=== PATIENT | female | born 1980 | race Caucasian/White ===

== ENCOUNTER → 2022-10-17 18:24 | Outpatient (BNVA) | payer SELFPAY | PROVIDERS: Visit Provider Family Medicine Adult Medicine | DX: S69.90XA Unspecified injury of unspecified wrist, hand and finger(s), initial encounter (principal); X58.XXXA Exposure to other specified factors, initial encounter | CPT/HCPCS: 73110 ==

== ENCOUNTER → 2023-03-17 10:00 | Outpatient (BNVA) | payer BC, SELFPAY | PROVIDERS: PCP Family Medicine; Referring Provider Family Medicine; Visit Provider Obstetrics & Gynecology | DX: N92.6 Irregular menstruation, unspecified (principal) | CPT/HCPCS: 83001; 84146; 84443; 84702; 85025 ==

== ENCOUNTER → 2023-04-02 10:16 | Outpatient (BNVA) | payer OTHER, SELFPAY | PROVIDERS: PCP Family Medicine; Visit Provider Obstetrics & Gynecology | DX: N92.6 Irregular menstruation, unspecified (principal) | CPT/HCPCS: 76830 ==

== ENCOUNTER 2023-10-20 20:59 | Emergency (ER) | payer OTHER, SELFPAY ==
[2023-10-20 21:07] VITALS: BP 122/77; PULSE 70; RESP 20; TEMP 36.7; O2SAT 96; BMI 36.6
--- NOTE | 2023-10-20 21:36 | W.ED.ABDPA2 ---
HPI - Abdominal Pain General: Chief Complaint: Abdominal Pain Stated Complaint: abd pain vomiting Time Seen by Provider: 10/20/23 21:28 History of Present Illness: Patient presents to the ER with complaints of sudden onset severe epigastric right upper quadrant abdominal pain and nausea and vomiting since 1 hour. 1 hour ago she ate cheddar peppers for dinner and is been experiencing this ever since. Patient does have a history of having her gallbladder removed, she has had 6 C-sections, patient tried Pepto-Bismol and antacids with no relief. Patient did go to her primary care doctor today for getting up in the middle the night to make times to go urinate he did prescribe her Diflucan which she has taken in the past and has never caused this reaction. Related Data: Date of Last Menstrual Period: 09/13/23 Review of Systems General: Reports: 10 or more systems reviewed and unremarkable except in HPI and below PFSH ED PFSH: Medical History Anxiety Bipolar 2 disorder Depression Gestational diabetes OCD (obsessive compulsive disorder) Strain of forearm, left Traumatic ecchymosis of left hand Surgical History History of 6 C-sections History of cholecystectomy Family History Mother Cancer lung Other Lung disease Psychiatric illness Denies family history of Diabetes CAD (coronary artery disease) Clotting disorder Dementia Hyperlipidemia Chronic kidney disease (CKD) Anesthesia complication Bleeding disorder Hypertension Stroke Social History Quit status (tobacco/nicotine): has quit using Alcohol intake: current Alcohol intake frequency: holidays/special occasions only Substance/Drug Use: never Lives independently: Yes Marital status: Number of children: 6 service: No Current occupational status: employed 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 Current gender identity: Female Yuki/Congregation: [employer] Special yuki needs: No Agree to transfusion: Yes Female Reproductive History: Date of last menstrual period: 09/13/23 Physical Exam Const: COMMON NORMALS: no acute distress, average body habitus, patient oriented x3, no limitations, healthy appearing, alert and well nourished HENMT: COMMON NORMALS: normocephalic, atraumatic, hearing grossly normal bilaterally, external ears normal, Normal external nose present, moist oral mucous membranes and oropharynx normal HEAD & SCALP: normocephalic and atraumatic NOSE: Normal external nose present EXTERNAL EAR: Yes external ears normal Neck/C-Spine: COMMON NORMALS: full ROM, no lymphadenopathy, supple, no meningeal signs, no JVD and Thyroid normal THYROID: Thyroid normal Chest: COMMONS NORMALS: normal inspection of the chest and normal palpation of entire chest wall Resp: COMMON NORMALS: normal respiratory effort, No retractions, No use of accessory muscles and clear to auscultation bilaterally AUSCULTATION: clear to auscultation bilaterally Cardio: COMMON NORMALS: no JVD, regular rate, regular rhythm, S1 normal heart sound present, S2 normal heart sound present, No gallops present (Cardio), No clicks present (Cardio), No murmurs present (Cardio) and No rub (Cardio) RATE: regular rate RHYTHM: regular rhythm HEART SOUNDS: S1 normal heart sound present and S2 normal heart sound present GI: COMMON NORMALS: Normal to inspection, nondistended, normoactive bowel sounds present, Soft to palpation, No hepatosplenomegaly present and no masses; negative for non-tender (Tender to palpate epigastric region and right upper quadrant.) PALPATION: Yes Soft to palpation and Yes No hepatosplenomegaly present Neuro: COMMON NORMALS: patient oriented x3 SENSORIUM/ORIENTATION: Yes alert MENINGEAL SIGNS: Yes no meningeal signs Course Vital Signs: Vital signs: Vital Signs Temperature 98.1 F 10/20/23 21:07 Pulse Rate 61 10/21/23 00:10 Respiratory Rate 18 10/21/23 00:10 Blood Pressure 138/78 10/21/23 00:10 Pulse Oximetry 97 10/21/23 00:10 Oxygen Delivery Me thod Room Air 10/21/23 00:10 MDM - Abdominal Pain Medical Decision Making Patient presents to the ER with nausea vomiting patient was worked up with lab work and a CT abdomen and pelvis CT scan with contrast, patient's white count was slightly elevated 17,000 patient's abdomen and CT was Unremarkable except for some mild periportal edema, 9 mm lineal density and a common bile duct could represent a surgical clip. Patient was feeling much better after the Toradol Zofran and fluid. Patient be discharged home to follow-up with her PCP in 7 days on an as-needed basis. Differential Diagnosis Likely abdominal pain and gastroenteritis; Unlikely acute appendicitis, calculus of kidney, constipation, diverticulitis, endometriosis, pancreatitis or small bowel obstruction Medical Records I reviewed the patient's medical records. Lab Data I reviewed the patient's lab results. 10/20/23 21:26 10/20/23 21: Labs/Radiology: Radiology Impressions Abdomen/Pelvis CT 10/20/23 22:02 IMPRESSION: 1. Patient is status post cholecystectomy. There is both mild intrahepatic bile duct dilation, not unexpected in the setting of cholecystectomy, and mild periportal edema, which is nonspecific, most commonly be seen with aggressive fluid resuscitation/over-hydration, but can also be seen with hepatitis. 2. There is a 9 mm linear metallic density within the distal common bile duct, indeterminate, could represent a migrated surgical clip. 3. Small somewhat ill-defined hypodensities in the anterior right hepatic lobe, incompletely characterized. Consider further evaluation with nonemergent multiphase CT or MRI when acute illness resolves. Laboratory Results WBC 17.07 10^3/uL (3.29-11.43) H 10/20/23 21: RBC 4.81 10^6/uL (3.85-5.65) 10/20/23: Hgb 14.00 g/dL (11.27-16.99) 10/20/23: Hct 43.8 % (36-47) 10/20/23: MCV 91.1 fl (85-98) 10/20/23: MCH 29.1 pg (27-33) 10/20/23: MCHC 32.0 g/dL (30-55) 10/20/23 21: RDW 12.7 % (12.1-15.1) 10/20/23: Plt Count 235 10^3/cmm (157-399) 10/20/23: MPV 9.5 fL (7.4-10.4) 10/20/23: Neut % (Auto) 81.6 % 10/20/23 21: Lymph % (Auto) 10.4 % 10/20/23: [place] % (Auto) 6.0 % 10/20/23: Eos % (Auto) 1.0 % 10/20/23 21: Baso % (Auto) 0.5 % 10/20/23 21: Neut # (Auto) 13.92 10^3/uL (1.8-7.7) H 10/20/23: Lymph # (Auto) 1.8 10^3/uL (0.8-4.8) 10/20/23 21: [place] # (Auto) 1.0 10^3/uL (0.2-0.9) H 10/20/23 21: Eos # (Auto) 0.2 10^3/uL (0.0-0.8) 10/20/23: Baso # (Auto) 0.1 10^3/uL (0.0-0.1) 10/20/23: Nucleated RBC % (auto) 0 % 10/20/23: Nucleated RBCs # 0.0 /100WBC 10/20/23 21: Sodium 140 mmol/L (136-145) 10/20/23 21: Potassium 3.9 mmol/L (3.5-5.1) 10/20/23: Chloride 105 mmol/L (98-107) 10/20/23: Carbon Dioxide 24 mmol/L (22-29) 10/20/23: Anion Gap 14.9 (5-19) 10/20/23 21: BUN 13 mg/dL (6-20) 10/20/23 21: Creatinine 1.0 mg/dL (0.5-0.9) H 10/20/23 21: GFR Calculation 60.2 mL/min (90-130) L 10/20/23 21: Glucose 134 mg/dL (65-115) H 10/20/23 21: Calculated Osmolality 292 mOsm/kg (285-295) 10/20/23: Calcium 10.0 mg/dL (8.5-10.5) 10/20/23 21: Total Bilirubin 0.8 mg/dL (0.15-1.2) 10/20/23 21: AST 100 U/L (0-32) H 10/20/23 21: ALT 40 U/L (0-33) H 10/20/23 21: Alkaline Phosphatase 82 U/L (35-105) 10/20/23 21: Total Protein 7.1 g/dL (6.6-8.7) 10/20/23: Albumin 4.4 g/dL (3.5-5.2) 10/20/23 21: Globulin 2.7 g/dL (1.3-4.6) 10/20/23 21: Lipase 42 U/L (13-60) 10/20/23 21: HCG, Qual Negative (Negative) 10/20/23 21: Urine Color Yellow (Yellow) 10/20/23 22:32 Urine Appearance Clear (CLEAR) 10/20/23 22:32 Urine pH 5 (5-7) 10/20/23 22:32 Ur Specific [place] 1.010 (1.005-1.030) 10/20/23 22:32 Urine Protein Trace (Negative) 10/20/23 22:32 Urine Glucose (UA) Norm (Normal) 10/20/23 22:32 Urine Ketones Negative (Negative) 10/20/23 22:32 Urine Blood 3+ (Negative) H 10/20/23 22:32 Urine Nitrate Negative (Negative) 10/20/23 22:32 Urine Bilirubin Neg (Negative) 10/20/23 22:32 Urine Urobilinogen 4 mg/dL (Negative) H 10/20/23 22:32 Ur Leukocyte Esterase Negative (Negative) 10/20/23 22:32 Urine RBC 0-4 /hpf (0-2) H 10/20/23 22:32 Urine WBC 5-10 /hpf (0-5) H 10/20/23 22:32 Ur Squamous Epith Cells 40-55 /hpf (0-5) H 10/20/23 22:32 Amorphous Sediment Trace /hpf 10/20/23 22:32 Urine Bacteria Trace /hpf (NONE) 10/20/23 22:32 Urine Mucus Trace /hpf 10/20/23 22:32 All radiology interpretation(s) finalized by discharge Discharge Plan Discharge Patient Disposition: Home Clinical Impression: Gastroenteritis Abdominal pain Qualifiers: Abdominal location: upper abdomen, unspecified Qualified Code(s): R10.10 - Upper abdominal pain, unspecified Condition: Stable Prescriptions: New ondansetron HCl 4 mg tablet 4 mg PO Q8H PRN (Reason: nausea and vomiting) Qty: 10 0RF No Action budesonide 32 mcg/actuation spray,non-aerosol 1 spray intranasal DAILY PRN Rx Instructions: administer into each nostril oxymetazoline [Afrin (oxymetazoline)] 0.05 % spray,non-aerosol 2 spray intranasal Q12H PRN fluconazole 150 mg tablet 150 mg PO Q3D 0 Days Qty: 2 0RF trazodone 100 mg tablet 100 mg PO DAILY Qty: 90 1RF medroxyprogesterone [Depo-Provera] 150 mg/mL suspension 150 mg IM ONCE Qty: 1 4RF Discharge Orders: Discharge ED (Routine); Ordered 10/21/23 Ordered By: Jaleel Holbrook Referrals: Ney Alberto MD [Primary Care Provider] - 1 week Patient Instructions: Gastroenteritis (DC), Abdominal Pain (ED) Activity Restrictions/Additional Instructions: Please follow-up with your family practice physician within the next 7 to 10 days or sooner as needed for further evaluation testing. Please take all your medicine as directed as needed. Coding Level of Care Code ED Hobbing Machine Operator for Dre Jefferson
[2023-10-20 21:40] LABS: Basophils # 0.1 10^3/uL (0.0-0.1); Basophils % 0.5 %; Eosinophils # 0.2 10^3/uL (0.0-0.8); Hematocrit 43.8 % (36-47); Lymphocytes # 1.8 10^3/uL (0.8-4.8); Lymphocytes % 10.4 %; Mean Corpuscular Hemoglobin 29.1 pg (27-33); Mean Corpuscular Volume 91.1 fl (85-98); Mean Platelet Volume 9.5 fL (7.4-10.4); Neutrophils # 13.92 10^3/uL (1.8-7.7); Neutrophils % 81.6 %; Nucleated Red Blood Cells % 0 %; Platelet Count 235 10^3/cmm (157-399); Red Blood Count 4.81 10^6/uL (3.85-5.65); Red Cell Distribution Width 12.7 % (12.1-15.1); White Blood Count 17.07 10^3/uL (3.29-11.43)
[2023-10-20 21:44] LABS: HCG, Serum Qual Negative (Negative)
[2023-10-20 21:49] LABS: Alanine Aminotransferase 40 U/L (0-33); Albumin Level 4.4 g/dL (3.5-5.2); Alkaline Phosphatase 82 U/L (35-105); Anion Gap 14.9 (5-19); Aspartate Amino Transferase 100 U/L (0-32); Blood Urea Nitrogen 13 mg/dL (6-20); Carbon Dioxide 24 mmol/L (22-29); Chloride 105 mmol/L (98-107); Globulin 2.7 g/dL (1.3-4.6); Glomerular Filtration Rate 60.2 mL/min (90-130); Glucose 134 mg/dL (65-115); Lipase 42 U/L (13-60); Osmolality Calculated 292 mOsm/kg (285-295); Potassium 3.9 mmol/L (3.5-5.1); Sodium 140 mmol/L (136-145); Total Bilirubin 0.8 mg/dL (0.15-1.2); Total Protein 7.1 g/dL (6.6-8.7)
[2023-10-20] MEDS: ondansetron 2 mg/ML SDV 2 mL 4 MG IVP (21:49)
[2023-10-20] MEDS: sodium chloride 0.9% 1,000 ML 999 ML IV (21:49)
[2023-10-20] MEDS: ketorolac 30 mg/mL INJ IVP (21:49)
--- NOTE | 2023-10-20 22:02 | CTR_ITS ---
PROCEDURE INFORMATION: Exam: CT Abdomen And Pelvis With Contrast Exam date and time: 10/20/2023 10:15 PM Age: 43 years old Clinical indication: Abdominal pain; Localized; Right upper quadrant (ruq); Prior surgery; Surgery date: 6+ months; Surgery type: Gb, ; Additional info: Ruq/epigastric pain, n/v, HX cholycystectomy, elevated lfts TECHNIQUE: Imaging protocol: Computed tomography of the abdomen and pelvis with contrast. Radiation optimization: All CT scans at this facility use at least one of these dose optimization techniques: automated exposure control; mA and/or kV adjustment per patient size (includes targeted exams where dose is matched to clinical indication); or iterative reconstruction. Contrast material: OMNI 350; Contrast volume: 100 ml; Contrast route: INTRAVENOUS (IV); REPORTING DATA: Count of CT and Cardiac NM exams in prior 12 months: This patient has received 0 known CTs and 0 known cardiac nuclear medicine studies in the 12 months prior to the current study. COMPARISON: US transvaginal [id number] 04/02/2023 10:26 AM RADIATION DOSE METRICS: Total DLP (mGy-cm): 863.12 FINDINGS: Liver: Small somewhat ill-defined hypodensities in the anterior right hepatic lobe, series 3, image 21, and inferior right hepatic lobe, series 3, image 36, incompletely characterized. Gallbladder and bile ducts: There is both mild intrahepatic bile duct dilation, not unexpected in the setting of cholecystectomy, and mild periportal edema, which is nonspecific, but can be seen with aggressive fluid resuscitation/over-hydration. Cholecystectomy. There is a 9 mm linear metallic density within the distal common bile duct, series 5, image 25, indeterminate, could represent a migrated surgical clip. Pancreas: Unremarkable. No duct dilation. Spleen: Unremarkable. Adrenal glands: Unremarkable. Kidneys and ureters: No hydronephrosis or hydroureter. No renal or ureteral calculi. Stomach and bowel: No bowel obstruction. Appendix: No evidence of appendicitis. Intraperitoneal space: Unremarkable. No free air. No significant fluid collection. Vasculature: Portal and hepatic veins are patent. Lymph nodes: No enlarged lymph nodes. Urinary bladder: Unremarkable as visualized. Reproductive: Small hyperdense lesions in the anterior uterine fundus, most likely fibroid. Bones/joints: No acute fracture. No aggressive osseous lesions. Soft tissues: Unremarkable. CT/CT abdomen pelvis w con* [id number] IMPRESSION: 1. Patient is status post cholecystectomy. There is both mild intrahepatic bile duct dilation, not unexpected in the setting of cholecystectomy, and mild periportal edema, which is nonspecific, most commonly be seen with aggressive fluid resuscitation/over-hydration, but can also be seen with hepatitis. 2. There is a 9 mm linear metallic density within the distal common bile duct, indeterminate, could represent a migrated surgical clip. 3. Small somewhat ill-defined hypodensities in the anterior right hepatic lobe, incompletely characterized. Consider further evaluation with nonemergent multiphase CT or MRI when acute illness resolves.
[2023-10-20] MEDS: iohexol 350 mg/mL 500 mL Btl (per mL) IV (22:19)
[2023-10-20 22:45] VITALS: BP 108/57; PULSE 61; RESP 18; O2SAT 97
[2023-10-20 22:55] LABS: Add Urine Culture? No; Add Urine Microscopic? YES; Amorphous Sediment Urine TRACE /hpf; Bacteria Urine TRACE /hpf; Bilirubin Urine Neg (Negative); Blood Urine 3+ (Negative); Glucose Urine UA Norm (Normal); Ketones Urine Negative (Negative); Leukocyte Esterase Urine Negative (Negative); Mucus Urine TRACE /hpf; Nitrate Urine Negative (Negative); Protein Urine Trace (Negative); RBC Urine 0-4 /hpf (0-2); Squamous Epithelial Cell Urine 40-55 /hpf (0-5); Urine Appearance Clear (CLEAR); Urine Color Yellow (Yellow); Urobilinogen Urine 4 mg/dL (Negative); pH Urine 5 (5-7)
[2023-10-21 00:10] VITALS: BP 138/78; PULSE 61; RESP 18; O2SAT 97
[2023-10-21] MEDS: HYDROcodone-acetaminophen 5-325 mg Tablet 1 TAB PO (00:41)
[2023-10-21] MEDS: famotidine 20 mg Tablet 40 MG PO (00:41)
== END 2023-10-21 00:42 | disposition home or self-care (01) ==
PROVIDERS: Nurse Practitioner Family; Emergency Provider Emergency Medicine; PCP Family Medicine
DX: K52.9 Noninfective gastroenteritis and colitis, unspecified (principal); Z87.891 Personal history of nicotine dependence
CPT/HCPCS: 36415; 74177; 80053; 81000; 81001; 83690; 84703; 85025; 96361; 96374; 96375; 99285; J1885; J2405; J7030; Q9967

== ENCOUNTER 2023-10-24 17:08 | Emergency (ER) | payer OTHER, SELFPAY ==
[2023-10-24 17:14] VITALS: BP 137/84; PULSE 60; RESP 18; TEMP 36.6; O2SAT 96; BMI 36.6
[2023-10-24 18:29] LABS: Basophils # 0.1 10^3/uL (0.0-0.1); Basophils % 0.7 %; Eosinophils # 0.4 10^3/uL (0.0-0.8); Eosinophils % 3.5 %; Lymphocytes # 1.4 10^3/uL (0.8-4.8); Lymphocytes % 11.8 %; Mean Corpuscular HGB Conc 31.7 g/dL (30-55); Mean Corpuscular Hemoglobin 29.6 pg (27-33); Mean Corpuscular Volume 93.1 fl (85-98); Mean Platelet Volume 9.7 fL (7.4-10.4); Monocytes # 0.8 10^3/uL (0.2-0.9); Monocytes % 6.7 %; Neutrophils # 9.25 10^3/uL (1.8-7.7); Neutrophils % 76.7 %; Nucleated Red Blood Cells % 0 %; Platelet Count 230 10^3/cmm (157-399); Red Blood Count 4.94 10^6/uL (3.85-5.65); Red Cell Distribution Width 13.3 % (12.1-15.1); White Blood Count 12.05 10^3/uL (3.29-11.43)
[2023-10-24 18:56] LABS: Alanine Aminotransferase 437 U/L (0-33); Albumin Level 4.3 g/dL (3.5-5.2); Alkaline Phosphatase 192 U/L (35-105); Anion Gap 16.7 (5-19); Aspartate Amino Transferase 116 U/L (0-32); Blood Urea Nitrogen 7 mg/dL (6-20); Calcium 9.4 mg/dL (8.5-10.5); Carbon Dioxide 21 mmol/L (22-29); Chloride 107 mmol/L (98-107); Globulin 2.8 g/dL (1.3-4.6); Glucose 135 mg/dL (65-115); Lipase 103 U/L (13-60); Osmolality Calculated 292 mOsm/kg (285-295); Potassium 3.7 mmol/L (3.5-5.1); Sodium 141 mmol/L (136-145); Total Bilirubin 4.5 mg/dL (0.15-1.2); Total Protein 7.1 g/dL (6.6-8.7)
--- NOTE | 2023-10-24 20:10 | CTR_ITS ---
PROCEDURE INFORMATION: Exam: CT Abdomen And Pelvis With Contrast Exam date and time: 10/24/2023 9:14 PM Age: 43 years old Clinical indication: Abdominal pain; Localized; Prior surgery; Surgery date: 6+ months; Surgery type: Gb. Csection; Patient HX: Upper abd pain with elevated lfts and bilirubin. ; Additional info: Abd pain/ elevated bilirubin TECHNIQUE: Imaging protocol: Computed tomography of the abdomen and pelvis with contrast. Sagittal and coronal reformatted images were created and reviewed. Radiation optimization: All CT scans at this facility use at least one of these dose optimization techniques: automated exposure control; mA and/or kV adjustment per patient size (includes targeted exams where dose is matched to clinical indication); or iterative reconstruction. Contrast material: OMNI 350; Contrast volume: 100 ml; Contrast route: INTRAVENOUS (IV); REPORTING DATA: Count of CT and Cardiac NM exams in prior 12 months: This patient has received [address] and 0 known cardiac nuclear medicine studies in the 12 months prior to the current study. COMPARISON: CT abdomen pelvis w con* [id number] 10/20/2023 10:15 PM RADIATION DOSE METRICS: Total DLP (mGy-cm): 827.56 FINDINGS: Lungs: Visualized lungs are clear. Pleural spaces: No pleural effusion. Heart: Visualized portions of the heart are unremarkable. Liver: Hypodense foci in the liver that cannot be further characterized on the current examination. The larger measures 1.3 cm in diameter, stable in size (series 3, image 30). Periportal edema has essentially resolved. Gallbladder and bile ducts: Stable findings consistent with a previous cholecystectomy. There is re-demonstration of a linear metallic focus in the distal common bile duct, unchanged in position. This may represent a migrated cholecystectomy clip. There is increasing intrahepatic and extrahepatic biliary ductal dilatation. The common bile duct now measures 1.3 cm, previously measured 8.6 mm (series 5, images 26-27). Pancreas: The pancreas is unremarkable. No pancreatic ductal dilatation. Spleen: The spleen is unremarkable. Adrenal glands: The right and left adrenal glands are unremarkable. Kidneys and ureters: The right and left kidneys are unremarkable. The right and left ureters are unremarkable. Stomach and bowel: Scattered diverticula in the colon. No evidence for diverticulitis. No acute abnormality in the small bowel. No acute abnormality in the stomach. Appendix: The appendix is visualized and is unremarkable. No findings to suggest acute appendicitis. Intraperitoneal space: No free intraperitoneal air. No ascites. No loculated fluid collections to suggest an abscess. Vasculature: No evidence for aortic aneurysm or aortic dissection. Hepatic veins, portal veins, splenic vein, and SMV are patent. Lymph nodes: No lymphadenopathy. Urinary bladder: The bladder is unremarkable for the degree of distension. Reproductive: The uterus, right ovary, and left ovary are unremarkable. Bones/joints: No acute fracture. Soft tissues: No acute abnormality in the extra-abdominal soft tissues. CT/CT abdomen pelvis w con* [id number] IMPRESSION: 1. Stable findings consistent with a previous cholecystectomy. There is re-demonstration of a linear metallic focus in the distal common bile duct, unchanged in position. This may represent a migrated cholecystectomy clip. There is increasing intrahepatic and extrahepatic biliary ductal dilatation. The common bile duct now measures 1.3 cm, previously measured 8.6 mm. 2. Stable indeterminate hypodense foci in the liver that cannot be further characterized on the current examination. Further evaluation with non-emergent liver MRI is recommended. (Reference: Lizeth) 3. Periportal edema has essentially resolved. 4. Scattered diverticula in the colon. No evidence for diverticulitis. REFERENCES: Lizeth SPENCER, et al. Management of Incidental Liver Lesions on CT: A White Paper of the ACR Incidental Findings Committee. J Am Radha Radiol. 2017;14(11):3966-3066.
--- NOTE | 2023-10-24 20:16 | ED_ITS ---
HPI - Abdominal Pain General: Chief Complaint: Abdominal Pain Stated Complaint: abd pain, N/V Time Seen by Provider: 10/24/23 19:46 Source: patient Mode of arrival: ambulatory Limitations: no limitations History of Present Illness: 43-year-old female states that she been having abdominal pain over the last 5 days she has been seen here and had a CT scan states the pain is worse in his epigastric and right upper quadrant. She did have a cholecystectomy in 2007. She had nausea denies any fevers she denies any worsening proving factors states pain is currently an 8 out of 10. Associated Symptoms: Reports nausea and vomiting; Denies chills, diarrhea, dysuria and fever(s) Review of Systems Const: Denies: fever(s), chills, body aches or change in appetite ENMT: Denies: throat pain or dental pain Card: Denies: chest pain Resp: Denies: dyspnea GI: Reports: abdominal pain, nausea and vomiting; Denies: diarrhea : Denies: dysuria Musc: Denies: neck pain or back pain Skin/Breast: Denies: rash Neuro: Denies: headache(s) PFSH ED PFSH: Medical History Anxiety Bipolar 2 disorder Depression Gestational diabetes OCD (obsessive compulsive disorder) Strain of forearm, left Traumatic ecchymosis of left hand Surgical History History of 6 C-sections History of cholecystectomy Family History Mother Cancer lung Other Lung disease Psychiatric illness Denies family history of Diabetes CAD (coronary artery disease) Clotting disorder Dementia Hyperlipidemia Chronic kidney disease (CKD) Anesthesia complication Bleeding disorder Hypertension Stroke Social History Quit status (tobacco/nicotine): has quit using Alcohol intake: current Alcohol intake frequency: holidays/special occasions only Substance/Drug Use: never Lives independently: Yes Marital status: Number of children: 6 service: No Current occupational status: employed 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 Current gender identity: Female Yuki/Confucianism: Sabianism Special yuki needs: No Agree to transfusion: Yes Physical Exam Const: COMMON NORMALS: no acute distress, patient oriented x3 and healthy appearing HENMT: COMMON NORMALS: normocephalic and atraumatic HEAD & SCALP: normocephalic and atraumatic Neck/C-Spine: COMMON NORMALS: full ROM and supple Chest: COMMONS NORMALS: normal inspection of the chest and normal palpation of entire chest wall Resp: COMMON NORMALS: normal respiratory effort, No retractions, No use of accessory muscles and clear to auscultation bilaterally AUSCULTATION: clear t o auscultation bilaterally Cardio: COMMON NORMALS: regular rate, regular rhythm and No murmurs present (Cardio) RATE: regular rate RHYTHM: regular rhythm GI: COMMON NORMALS: Normal to inspection, nondistended, normoactive bowel sounds present, Soft to palpation and no masses PALPATION: Yes Soft to palpation and Yes Tenderness to palpation present (GI) Details: RUQ Extremity: COMMON NORMALS: normal to inspection and full ROM Neuro: COMMON NORMALS: patient oriented x3, moves all extremities and no focal motor deficits Psych: COMMON NORMALS: mental status grossly normal, Normal thought process present and cooperative THOUGHT PROCESS: Normal thought process present Skin: COMMON NORMALS: no rashes or lesions noted and no wounds GENERAL SKIN EXAM: no rashes or lesions noted Course Vital Signs: Vital signs: Vital Signs Temperature 97.9 F 10/24/23 17:14 Pulse Rate 60 10/25/23 00:10 Respiratory Rate 18 10/25/23 00:10 Blood Pressure 131/69 10/25/23 00:10 Pulse Oximetry 95 10/25/23 00:10 Oxygen Delivery Me thod Room Air 10/25/23 00:10 MDM - Abdominal Pain Medical Decision Making Patient presents with abdominal pain she does have elevated bilirubin common bile duct dilated as well possibly blocked by surgical clips that is migrated. Did speak to [facility] will transfer there for higher level of care for GI. Medical Records I reviewed the patient's medical records. Lab Data I reviewed the patient's lab results. 10/24/23 18:20 10/24/23 18:20 Labs/Radiology: Radiology Impressions Abdomen/Pelvis CT 10/24/23 20:10 IMPRESSION: 1. Stable findings consistent with a previous cholecystectomy. There is re-demonstration of a linear metallic focus in the distal common bile duct, unchanged in position. This may represent a migrated cholecystectomy clip. There is increasing intrahepatic and extrahepatic biliary ductal dilatation. The common bile duct now measures 1.3 cm, previously measured 8.6 mm. 2. Stable indeterminate hypodense foci in the liver that cannot be further characterized on the current examination. Further evaluation with non-emergent liver MRI is recommended. (Reference: Lizeth) 3. Periportal edema has essentially resolved. 4. Scattered diverticula in the colon. No evidence for diverticulitis. REFERENCES: Lizeth SPENCER, et al. Management of Incidental Liver Lesions on CT: A White Paper of the ACR Incidental Findings Committee. J Am Radha Radiol. 2017;14(11):3618-1344. Laboratory Results WBC 12.05 10^3/uL (3.29-11.43) H 10/24/23 18:20 RBC 4.94 10^6/uL (3.85-5.65) 10/24/23 18:20 Hgb 14.60 g/dL (11.27-16.99) 10/24/23 18:20 Hct 46.0 % (36-47) 10/24/23 18:20 MCV 93.1 fl (85-98) 10/24/23 18:20 MCH 29.6 pg (27-33) 10/24/23 18:20 MCHC 31.7 g/dL (30-55) 10/24/23 18:20 RDW 13.3 % (12.1-15.1) 10/24/23 18:20 Plt Count 230 10^3/cmm (157-399) 10/24/23 18:20 MPV 9.7 fL (7.4-10.4) 10/24/23 18:20 Neut % (Auto) 76.7 % 10/24/23 18:20 Lymph % (Auto) 11.8 % 10/24/23 18:20 [place] % (Auto) 6.7 % 10/24/23 18:20 Eos % (Auto) 3.5 % 10/24/23 18:20 Baso % (Auto) 0.7 % 10/24/23 18:20 Neut # (Auto) 9.25 10^3/uL (1.8-7.7) H 10/24/23 18:20 Lymph # (Auto) 1.4 10^3/uL (0.8-4.8) 10/24/23 18:20 [place] # (Auto) 0.8 10^3/uL (0.2-0.9) 10/24/23 18:20 Eos # (Auto) 0.4 10^3/uL (0.0-0.8) 10/24/23 18:20 Baso # (Auto) 0.1 10^3/uL (0.0-0.1) 10/24/23 18:20 Nucleated RBC % (auto) 0 % 10/24/23 18:20 Nucleated RBCs # 0.0 /100WBC 10/24/23 18:20 Sodium 141 mmol/L (136-145) 10/24/23 18:20 Potassium 3.7 mmol/L (3.5-5.1) 10/24/23 18:20 Chloride 107 mmol/L (98-107) 10/24/23 18:20 Carbon Dioxide 21 mmol/L (22-29) L 10/24/23 18:20 Anion Gap 16.7 (5-19) 10/24/23 18:20 BUN 7 mg/dL (6-20) 10/24/23 18:20 Creatinine 0.9 mg/dL (0.5-0.9) 10/24/23 18:20 GFR Calculation 68.0 mL/min (90-130) L 10/24/23 18:20 Glucose 135 mg/dL (65-115) H 10/24/23 18:20 Calculated Osmolality 292 mOsm/kg (285-295) 10/24/23 18:20 Calcium 9.4 mg/dL (8.5-10.5) 10/24/23 18:20 Total Bilirubin 4.5 mg/dL (0.15-1.2) H 10/24/23 18:20 AST 116 U/L (0-32) H 10/24/23 18:20 ALT 437 U/L (0-33) H 10/24/23 18:20 Alkaline Phosphatase 192 U/L (35-105) H 10/24/23 18:20 Total Protein 7.1 g/dL (6.6-8.7) 10/24/23 18:20 Albumin 4.3 g/dL (3.5-5.2) 10/24/23 18:20 Globulin 2.8 g/dL (1.3-4.6) 10/24/23 18:20 Lipase 103 U/L (13-60) H 10/24/23 18:20 All radiology interpretation(s) finalized by discharge Discharge Plan Discharge Patient Disposition: Xfer Short-Term Hosp Clinical Impression: Abdominal pain, Elevated bilirubin, Dilated cbd, acquired Condition: Stable Referrals: Ney Alberto MD [Primary Care Provider] - Patient Instructions: Abdominal Pain (ED) Coding Level of Care Code ED Numerical Tool Programmer for Dre Jefferson
[2023-10-24 21:00] VITALS: RESP 16; O2SAT 98
[2023-10-24] MEDS: ondansetron 2 mg/ML SDV 2 mL 4 MG IVP (21:00)
[2023-10-24] MEDS: HYDROmorphone 1 mg/mL INJ 1 mL IVP (21:00)
[2023-10-24 21:03] VITALS: BP 142/95; PULSE 61; RESP 15; O2SAT 98
[2023-10-24] MEDS: iohexol 350 mg/mL 500 mL Btl (per mL) IV (21:16)
[2023-10-24 21:31] VITALS: BP 108/66; PULSE 51; RESP 18; O2SAT 93
[2023-10-24] MEDS: piperacillin-tazobactam 3.375 GM in sodium chloride 0.9% (plus) 50 ML IV (22:30)
[2023-10-24 23:09] VITALS: BP 107/53; PULSE 55; RESP 18; O2SAT 95
[2023-10-25] MEDS: ondansetron 2 mg/ML SDV 2 mL 4 MG IVP ×2 (00:03→01:29)
[2023-10-25 00:10] VITALS: BP 131/69; PULSE 60; RESP 18; O2SAT 95
[2023-10-25 00:21] LABS: Hepatitis A Antibody IgM Non-Reactive (Nonreactive); Hepatitis B Core AB, Total Non-Reactive (Nonreactive); Hepatitis B Surface AB 93.9 (11.5-1000); Hepatitis B Surface Antigen Non-Reactive (Nonreactive); Hepatitis C Virus Antibody Non-Reactive (Nonreactive)
[2023-10-25 00:40] VITALS: BP 116/59; PULSE 56; RESP 16; O2SAT 95
[2023-10-25 01:29] VITALS: RESP 16; O2SAT 95
[2023-10-25] MEDS: HYDROmorphone 1 mg/mL INJ 1 mL IVP (01:29)
[2023-10-25 01:35] VITALS: BP 118/62; PULSE 46; RESP 18; O2SAT 96
== END 2023-10-25 01:37 | disposition short-term general hospital (02) ==
PROVIDERS: Emergency Provider Emergency Medicine; PCP Family Medicine
DX: R10.11 Right upper quadrant pain (principal); R10.13 Epigastric pain; R17 Unspecified jaundice; K83.8 Other specified diseases of biliary tract; Z87.891 Personal history of nicotine dependence
CPT/HCPCS: 36415; 74177; 80053; 83690; 85025; 86705; 86706; 86709; 86803; 87340; 96365; 96375; 96376; 99285; J1170; J2405; J2543; Q9967

== ENCOUNTER → 2024-01-16 10:29 | Outpatient (BNVA) | payer OTHER, SELFPAY | PROVIDERS: PCP Family Medicine; Visit Provider Emergency Medicine | DX: S59.902A Unspecified injury of left elbow, initial encounter (principal); W19.XXXA Unspecified fall, initial encounter | CPT/HCPCS: 73080 ==

== ENCOUNTER → 2025-10-31 08:09 | Outpatient (BNVA) | payer OTHER, SELFPAY | PROVIDERS: Visit Provider Obstetrics & Gynecology | DX: N93.9 Abnormal uterine and vaginal bleeding, unspecified (principal); N88.8 Other specified noninflammatory disorders of cervix uteri; N83.01 Follicular cyst of right ovary; R93.89 Abnormal findings on diagnostic imaging of other specified body structures | CPT/HCPCS: 76830 ==

== ENCOUNTER → 2025-11-13 10:08 | Outpatient (BNVA) | payer OTHER, SELFPAY | PROVIDERS: Visit Provider Obstetrics & Gynecology | DX: N92.1 Excessive and frequent menstruation with irregular cycle (principal) | CPT/HCPCS: 85025; 88305 ==